=== PATIENT | male | born 1995 | race Caucasian/White ===

== ENCOUNTER 2023-11-11 15:20 | Emergency (ER) | payer MEDICAID ==
[~2023-11-11] VITALS: Ht 162.6 cm; Wt 80.0 kg
[2023-11-11 15:47] VITALS: O2SAT 100
[2023-11-11] MEDS ORDERED: IBUP-2029 MT (19:46)
[2023-11-11] MEDS ORDERED: AMOX1TAB16 MT (19:46)
[2023-11-11 20:22] VITALS: BP 135/78; PULSE 80; RESP 18; TEMP 98
== END 2023-11-11 20:26 | disposition home or self-care (01) ==
LOC: ER 15:20
DX: K04.7 Periapical abscess without sinus (principal); K02.9 Dental caries, unspecified
CPT/HCPCS: 99283

== ENCOUNTER 2023-12-24 15:58 | Emergency (ER) | payer MEDICAID ==
[~2023-12-24] VITALS: Ht 167.6 cm; Wt 91.0 kg
[~2023-12-24 15:58] MED LIST: AMOX1TAB16 MT; IBUP-2029 MT
[2023-12-24 16:12] VITALS: O2SAT 100
[2023-12-24] MEDS ORDERED: CEPH500T MT (18:07)
[2023-12-24] MEDS: LIDOCAINE HCL/PF 1% 10 MG/ML 5ML VIAL INFIL ONE (18:14)
[2023-12-24 18:35] VITALS: BP 139/83; PULSE 84; RESP 16; TEMP 98.5
== END 2023-12-24 18:36 | disposition home or self-care (01) ==
LOC: ER 15:58
DX: L60.0 Ingrowing nail (principal)
CPT/HCPCS: 11730; 99284; J3490; Z7610